=== PATIENT | male | born 1940 | race Caucasian/White ===

== ENCOUNTER → 2023-01-07 10:25 | Outpatient (CLI) | payer MEDICARE, OTHER, SELFPAY ==
--- NOTE | 2023-01-07 | DI.CT.S_ITS ---
PROCEDURE: CT CHEST ABD PEL W CON INDICATIONS: Prostate Cancer TECHNIQUE: After the administration of oral and intravenous contrast, axial sections acquired from the supraclavicular neck to the pubic symphysis. Coronal and sagittal reformats were performed. For radiation dose reduction, the following was used: automated exposure control, adjustment of mA and/or kV according to patient size. COMPARISON: None. FINDINGS: Image quality: Excellent. CHEST: Lower Neck: No enlarged lymph nodes. Thyroid: Within normal limits. Axillae: No enlarged lymph nodes. Chest Wall: Gynecomastia. Lungs and Airways: Moderate centrilobular emphysema. 4.5 millimeter triangular-shaped nodule with pleural tail in the anterior right upper lobe, presumably an intrapulmonary lymph node. No suspicious pulmonary nodules. Pleura: No pneumothorax or pleural effusions. Heart: Heart size is normal. No pericardial effusion. Three-vessel coronary disease, with presumable stents. Thoracic Vessels: The aorta and pulmonary arteries demonstrate normal size. Mediastinum and Evelyn: No enlarged lymph nodes. Esophagus: No wall thickening. No hiatal hernia. ABDOMEN: Liver: Unremarkable. Gallbladder: Unremarkable. Biliary ducts: Unremarkable. Pancreas: Unremarkable. Spleen: Splenic granuloma. Adrenal Glands: 1.4 centimeter left adrenal nodule. Kidneys and Ureters: Unremarkable. Stomach and Bowel: Stomach, small bowel loops, and colon are unremarkable. Peritoneum: No abnormal intraperitoneal fluid. No free air. Ventral Wall: No hernia. Abdominal Nodes: No retroperitoneal or mesenteric adenopathy by size criteria. Vessels: Aorta and inferior vena cava are normal in size. Extensive atherosclerotic disease. PELVIS: Pelvic Organs: Prostate is mildly enlarged. Normal contour. Bladder: Unremarkable. Pelvic Nodes: No enlarged lymph nodes. Miscellaneous: No inguinal hernias are seen. Bones: Extensive sclerotic metastatic disease. No measurable soft tissue component. No spinal canal impingement. IMPRESSION: 1. Normal contour of the prostate. No retroperitoneal or pelvic adenopathy. 2. Extensive sclerotic metastases without pathologic fracture or spinal canal impingement. 3. 1.4 centimeter left adrenal nodule, indeterminate in the setting malignancy. Consider dedicated CT or MRI (adrenal mass protocol). Dictated by: Jeff Merino M.D. on 01/07/2023 at 13:41 Approved by: Jeff Merino M.D. on 01/07/2023 at 13:46
--- NOTE | 2023-01-07 | DI.NM.S_ITS ---
PROCEDURE: NM BONE SCAN WHOLE BODY RADIOPHARMACEUTICAL: 20.7 mCi Tc-99m MDP IV. INDICATIONS: Prostate Cancer TECHNIQUE: Delayed whole-body scintigrams were obtained approximately 3-4 hours after intravenous injection of radiotracer. Anterior and posterior views were acquired from vertex to feet. COMPARISON: [facility], CT, CT CHEST ABD PEL W CON, 01/07/2023, 12:13. FINDINGS: There is a focal uptake in the left humeral neck, suspicious for metastasis. There is a fracture in the left humeral neck. There are foci of increased uptake in thoracic and lumbar spine, sacrum, bony pelvis bilaterally, correlating with sclerotic bone lesions seen on CT, consistent with metastasis to spine could be obscured by degenerative changes. Foci of increased activity in maxilla and mandible are most likely secondary to dental disease. There are foci of increased periarticular activity consistent with degenerative/arthritic changes. Increased activity is noted in the proximal left tibia. IMPRESSION: 1. Focal uptake in the left humeral neck correlating with a fracture. Cannot rule out pathological fracture. Recommend clinical correlation. If clinically indicated, MRI with and without contrast can be obtained. 2. Foci of increased uptake in thoracic and lumbar spine, sacrum, and bony pelvis, correlating with sclerotic bone lesions seen on the comparison CT, consistent with metastases. 3. Increased activity in the proximal tibia, indeterminate. Recommend radiographic correlation. Dictated by: Dionisio Kapoor M.D. on 01/07/2023 at 16:12 Approved by: Dionisio Kapoor M.D. on 01/07/2023 at 16:21
[2023-01-07 11:04] LABS: Estimated Glomerular Filt Rate > 60 mL/min (>60)
== END ==
PROVIDERS: Specialist; Referring Provider Internal Medicine Hematology & Oncology; Visit Provider Internal Medicine Hematology & Oncology
DX: C61 Malignant neoplasm of prostate (principal); C79.51 Secondary malignant neoplasm of bone; C77.5 Secondary and unspecified malignant neoplasm of intrapelvic lymph nodes; E27.9 Disorder of adrenal gland, unspecified; N62 Hypertrophy of breast; I25.10 Atherosclerotic heart disease of native coronary artery without angina pectoris
CPT/HCPCS: 36415; 71260; 74177; 78306; 82565; A9503; Q9967